=== PATIENT | male | born 1965 | race African-American/Black ===

== ENCOUNTER 2018-11-04 15:47 | Emergency (ER) | payer MEDICARE ==
[~2018-11-04] VITALS: Ht 170.2 cm; Wt 75.0 kg
[~2018-11-04 15:47] MED LIST: ABAC1TAB14 PO; ATAZ150C PO; RITO100C PO; TRAVADA PO
[2018-11-04 15:59] VITALS: BP 119/79
== END 2018-11-04 17:15 | disposition home or self-care (01) ==
LOC: ED 17:00
DX: S22.42XA Multiple fractures of ribs, left side, initial encounter for closed fracture (principal); Z21 Asymptomatic human immunodeficiency virus [HIV] infection status; X58.XXXA Exposure to other specified factors, initial encounter; Y93.89 Activity, other specified; Y92.009 Unspecified place in unspecified non-institutional (private) residence as the place of occurrence of the external cause; Y99.8 Other external cause status
CPT/HCPCS: 99283

== ENCOUNTER 2019-05-23 17:04 | Emergency (ER) | payer MEDICARE, MEDICAID ==
[~2019-05-23] VITALS: Ht 170.2 cm; Wt 72.0 kg
[2019-05-23 17:39] VITALS: BP 169/84
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
--- NOTE | 2019-05-23 18:52 | NUR ---
REPORT TO MICHAEL RENDON
--- NOTE | 2019-05-23 18:55 | NUR ---
Matthew bird in ED - 05/23/19 at 1901 by CARLI PT MOM GIVEN D/C INSTRUCTIONS, UNDERSTANDING STATED. PT CARRIED OUT WITH KI, STABLE ON D/C
== END 2019-05-23 19:07 | disposition home or self-care (01) ==
LOC: ED 19:01
DX: L01.01 Non-bullous impetigo (principal); B19.20 Unspecified viral hepatitis C without hepatic coma
CPT/HCPCS: 99283

== ENCOUNTER 2020-01-01 17:34 | Emergency (ER) | payer MEDICARE ==
[~2020-01-01] VITALS: Ht 170.2 cm; Wt 73.0 kg
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
--- NOTE | 2020-01-01 18:37 | NUR ---
REPORT FROM PATY RENDON.
--- NOTE | 2020-01-01 18:48 | NUR ---
REPORT TO ADELINE RENDON.
[2020-01-01 19:00] LABS: BASOPHILS # (AUTO) 0.03 x10^3/uL (0-0.1); BASOPHILS % (AUTO) 1 % (0-1); EOSINOPHILS # (AUTO) 0.05 x10^3/uL (0-0.4); EOSINOPHILS % (AUTO) 1 % (1-7); LYMPHOCYTES % (AUTO) 38 % (22-44); MD NO; MEAN CORPUSCULAR HEMOGLOBIN 32.6 pg (27.5-34.5); MEAN CORPUSCULAR HGB CONC 33.5 g/dL (33.2-36.2); MEAN CORPUSCULAR VOLUME 97.4 fL (81-97); MEAN PLATELET VOLUME 8.6 fL (7.4-10.4); MONOCYTES # (AUTO) 0.55 x10^3/uL (0.2-0.8); MONOCYTES % (AUTO) 12 % (2-9); NEUTROPHILS % (AUTO) 49 % (42-75); PLATELET COUNT 239 x10^3/uL (130-400); RED BLOOD COUNT 4.81 x10^6/uL (4.38-5.82); RED CELL DISTRIBUTION WIDTH 14.7 % (9.4-14.8)
[2020-01-01] MEDS ORDERED: ONDANSETRON ODT 4 MG PO ONE (19:00)
[2020-01-01] MEDS ORDERED: ONDANSETRON ODT 4 MG ONE (19:04)
[2020-01-01 19:05] LABS: ALBUMIN 3.7 g/dL (3.4-5.0); ANION GAP 8 mmol/L (5-15); CALCIUM 8.9 mg/dL (8.5-10.1); CHLORIDE 104 mmol/L (98-107); CREATININE 0.96 mg/dL (0.7-1.3)
[2020-01-01 20:58] VITALS: BP 159/92
== END 2020-01-01 21:00 | disposition home or self-care (01) ==
LOC: ED 19:55
DX: S00.412A Abrasion of left ear, initial encounter (principal); J02.8 Acute pharyngitis due to other specified organisms; B97.89 Other viral agents as the cause of diseases classified elsewhere; R94.31 Abnormal electrocardiogram [ECG] [EKG]; Z21 Asymptomatic human immunodeficiency virus [HIV] infection status; X58.XXXA Exposure to other specified factors, initial encounter; Y93.89 Activity, other specified; Y92.89 Other specified places as the place of occurrence of the external cause; Y99.8 Other external cause status
CPT/HCPCS: 36415; 71045; 80048; 82040; 85025; 87081; 87880; 93005; 99285; Q0162

== ENCOUNTER 2020-05-27 01:31 | Emergency (ER) | payer MEDICARE, MEDICAID ==
[~2020-05-27] VITALS: Ht 170.2 cm; Wt 66.0 kg
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
[2020-05-27] MEDS ORDERED: OXYcodone/APAP 5/325MG TABLET ONE (03:08)
--- NOTE | 2020-05-27 03:10 | NUR ---
PT C/O PAIN ON FACE. REPORTED TO PROVIDER FOR PAIN MEDICATION ORDER. PT MEDICATED PER JAN.
[2020-05-27] MEDS ORDERED: OXYcodone/APAP 5/325MG TABLET PO ONE (03:30)
--- NOTE | 2020-05-27 03:55 | NUR ---
PT RESTING IN NAD.
[2020-05-27 04:23] VITALS: BP 121/65
== END 2020-05-27 05:07 | disposition home or self-care (01) ==
LOC: ED 02:01
DX: S02.2XXA Fracture of nasal bones, initial encounter for closed fracture (principal); S02.31XA Fracture of orbital floor, right side, initial encounter for closed fracture; R51 Headache; Y04.8XXA Assault by other bodily force, initial encounter; Y93.89 Activity, other specified; Y92.410 Unspecified street and highway as the place of occurrence of the external cause; Y99.8 Other external cause status
CPT/HCPCS: 70450; 70486; 72125; 99285

== ENCOUNTER 2020-06-28 13:17 | Observation (INO) | payer MEDICARE, MEDICAID ==
[~2020-06-28] VITALS: Ht 170.2 cm; Wt 67.0 kg
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
--- NOTE | 2020-06-28 13:59 | NUR ---
REPORT FROM JUSTICE MULTANI. PT CARE RESPONSIBLITIES ASSUMED.
--- NOTE | 2020-06-28 14:07 | NUR ---
REPORT GIVEN TO JUSTICE YANCEY.
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
--- NOTE | 2020-06-28 17:01 | NUR ---
PT UPDATED ON PLAN OF CARE. VERBALIZES UNDERSTANDING, DENIES ANY FURTHER NEEDS OR CONCERNS AT THIS TIME. CALL LIGHT IN REACH.
--- NOTE | 2020-06-28 17:01 | NUR ---
[facility] [place] -
--- NOTE | 2020-06-28 19:17 | NUR ---
PT PROVIDED WITH WARM BLANKETS PER REQUEST. DENIES ANY OTHER NEEDS AT THIS TIME. CALL LIGHT IN REACH.
--- NOTE | 2020-06-28 19:51 | NUR ---
REPORT CALLED TO LARISSA HELTON RN. PT AWARE OF IMPENDING TRANSPORT. DENIES ANY NEEDS OR CONCERNS AT THIS TIME. CALL LIGHT IN REACH.
[2020-06-28 20:30] VITALS: BP 184/102
[2020-06-28] MEDS ORDERED: morphine SULFATE 10 MG/ML, 1ML IVPush PRN (23:00)
[2020-06-28] MEDS ORDERED: ONDANSETRON 2MG/ML, 2ML IVPush PRN (23:00)
[2020-06-28] MEDS ORDERED: hydrALAzine 20 MG/ML, 1ML IVPush PRN (23:00)
[2020-06-28] MEDS ORDERED: ACETAMINOPHEN 325 MG TABLET PO PRN (23:00)
[2020-06-28] MEDS ORDERED: LORazepam 1MG TABLET PO PRN (23:00)
[2020-06-28] MEDS ORDERED: CLON1TAB11 PO (23:24)
[2020-06-29] MEDS ORDERED: NICOTINE 21 MG/24 HR PATCH.TD24 TD SCH (01:00)
[2020-06-29 02:18] VITALS: BP 162/96
[2020-06-29 07:19] VITALS: BP 139/77
[2020-06-29] MEDS ORDERED: SENNA/DOCUSATE TABLET PO SCH (09:00)
[2020-06-29] MEDS ORDERED: TRIUMEQ PO SCH (09:00)
[2020-06-29 12:44] VITALS: BP 144/102
[2020-06-29] MEDS ORDERED: OXYC-302 PO ×2 (15:36→15:41)
== END 2020-06-29 17:00 | disposition home or self-care (01) ==
LOC: ED 15:14 → INTOOBSV 18:28 → 4NE 18:28
PROVIDERS: ADMIT Family Medicine; ATTEND Internal Medicine
DX: S02.642A Fracture of ramus of left mandible, initial encounter for closed fracture (principal); S02.641A Fracture of ramus of right mandible, initial encounter for closed fracture; F41.9 Anxiety disorder, unspecified; B20 Human immunodeficiency virus [HIV] disease; R20.0 Anesthesia of skin; F17.200 Nicotine dependence, unspecified, uncomplicated; Z79.899 Other long term (current) drug therapy; Y04.0XXA Assault by unarmed brawl or fight, initial encounter; Y93.89 Activity, other specified; Y92.89 Other specified places as the place of occurrence of the external cause
CPT/HCPCS: 70100; 99285; G0378

== ENCOUNTER 2020-07-22 00:27 | Emergency (ER) | payer MEDICARE, MEDICAID ==
[~2020-07-22] VITALS: Ht 170.2 cm; Wt 71.0 kg
[~2020-07-22 00:27] MED LIST changes: +AMOX1TAB64 PO; +CLIN300C8 PO; +CLON1TAB11 PO; +HYDR-826 PO; +METO25TA91 PO; +NAPR-856 PO; +OXYC-302 PO; +[UNRECOGNIZED DRUG - OTHER] PO
[2020-07-22 00:31] VITALS: BP 155/107
--- NOTE | 2020-07-22 00:40 | NUR ---
PT AMB TO ROOM FROM TRIAGE
--- NOTE | 2020-07-22 01:51 | NUR ---
LAB AT BEDSIDE FOR DRAW
[2020-07-22 02:08] LABS: BASOPHILS # (AUTO) 0.02 x10^3/uL (0-0.1); BASOPHILS % (AUTO) 0 % (0-1); EOSINOPHILS # (AUTO) 1.32 x10^3/uL (0-0.4); EOSINOPHILS % (AUTO) 24 % (1-7); LYMPHOCYTES # (AUTO) 2.09 x10^3/uL (1-3.4); LYMPHOCYTES % (AUTO) 37 % (22-44); MD NO; MEAN CORPUSCULAR HEMOGLOBIN 33.8 pg (27.5-34.5); MEAN CORPUSCULAR HGB CONC 32.9 g/dL (33.2-36.2); MEAN CORPUSCULAR VOLUME 102.9 fL (81-97); MEAN PLATELET VOLUME 7.6 fL (7.4-10.4); MONOCYTES # (AUTO) 0.43 x10^3/uL (0.2-0.8); MONOCYTES % (AUTO) 8 % (2-9); NEUTROPHILS # (AUTO) 1.75 x10^3/uL (1.8-6.8); NEUTROPHILS % (AUTO) 31 % (42-75); PLATELET COUNT 328 x10^3/uL (130-400); RED BLOOD COUNT 4.11 x10^6/uL (4.38-5.82); RED CELL DISTRIBUTION WIDTH 14.6 % (9.4-14.8)
[2020-07-22 02:21] LABS: ALANINE AMINOTRANSFERASE 25 U/L (12-78); ALBUMIN 2.9 g/dL (3.4-5.0); ANION GAP 6 mmol/L (5-15); CALCIUM 8.4 mg/dL (8.5-10.1); CHLORIDE 111 mmol/L (98-107); CREATININE 0.93 mg/dL (0.7-1.3)
[2020-07-22 02:23] LABS: ALKALINE PHOSPHATASE 60 U/L (45-117); BILIRUBIN,TOTAL 0.2 mg/dL (0.2-1.0); TOTAL PROTEIN 6.4 g/dL (6.4-8.2)
--- NOTE | 2020-07-22 02:54 | NUR ---
AT BEDSIDE FOR REASSEMENT
[2020-07-22] MEDS ORDERED: HYDROcodone/APAP 5/325 TABLET PO ONE (03:00)
[2020-07-22] MEDS ORDERED: DIPHENHYDRAMINE 25 MG CAPSULE PO ONE (03:00)
[2020-07-22] MEDS ORDERED: DEXAMETHASONE 4 MG TABLET PO ONE (03:00)
[2020-07-22] MEDS ORDERED: HYDROcodone/APAP 5/325 TABLET ONE (03:18)
[2020-07-22] MEDS ORDERED: DIPHENHYDRAMINE 25 MG CAPSULE ONE (03:19)
[2020-07-22] MEDS ORDERED: DEXAMETHASONE 4 MG TABLET ONE (03:19)
--- NOTE | 2020-07-22 03:48 | NUR ---
Patient/Caregiver given discharge instructions and they have confirmed that they understand the instructions. Patient ambulatory with steady gait.
== END 2020-07-22 03:49 | disposition home or self-care (01) ==
LOC: ED 02:52
DX: H05.229 Edema of unspecified orbit (principal); R68.84 Jaw pain; Z21 Asymptomatic human immunodeficiency virus [HIV] infection status; R51 Headache; F17.200 Nicotine dependence, unspecified, uncomplicated
CPT/HCPCS: 36415; 80053; 85025; 99284; Q0163

== ENCOUNTER 2020-09-10 11:55 | Inpatient (IN) | payer MEDICARE, MEDICAID ==
[~2020-09-10] VITALS: Ht 170.2 cm; Wt 70.3 kg
[2020-09-10 12:47] LABS: BASOPHILS % (AUTO) 1 % (0-1); EOSINOPHILS % (AUTO) 2 % (1-7); LYMPHOCYTES % (AUTO) 14 % (22-44); MEAN CORPUSCULAR HEMOGLOBIN 33.6 pg (27.5-34.5); MEAN CORPUSCULAR HGB CONC 32.9 g/dL (33.2-36.2); MEAN PLATELET VOLUME 8.9 fL (7.4-10.4); MONOCYTES % (AUTO) 9 % (2-9); NEUTROPHILS % (AUTO) 75 % (42-75); PLATELET COUNT 291 x10^3/uL (130-400); RED BLOOD COUNT 4.23 x10^6/uL (4.38-5.82); RED CELL DISTRIBUTION WIDTH 13.9 % (9.4-14.8)
[2020-09-10 12:56] LABS: ALBUMIN 3.2 g/dL (3.4-5.0); ANION GAP 3 mmol/L (5-15); CALCIUM 8.8 mg/dL (8.5-10.1); CHLORIDE 106 mmol/L (98-107); CREATININE 0.93 mg/dL (0.7-1.3)
[2020-09-10 13:28] LABS: MD SCAN
[2020-09-10] MEDS ORDERED: HYDROmorphone 1 MG/ML, 1ML INJ IVPush PRN (14:00)
[2020-09-10] MEDS ORDERED: ONDANSETRON 2MG/ML, 2ML IVPush ONE (14:00)
[2020-09-10] MEDS ORDERED: PHARMACOKINETIC CONSULTATION MC ONE ×2 (14:00→20:00)
[2020-09-10] MEDS ORDERED: VANCOMYCIN 1,800 MG in SODIUM CHLORIDE 0.9% 250 ML IV ONE ×2 (14:00→20:00)
[2020-09-10] MEDS ORDERED: SODIUM CHLORIDE FLUSH 10ML SYR IVF ONE (14:00)
[2020-09-10] MEDS ORDERED: VANCOMYCIN PER PHARMACY MC ONE (14:00)
[2020-09-10] MEDS ORDERED: ONDANSETRON 2MG/ML, 2ML ONE (14:29)
[2020-09-10] MEDS ORDERED: HYDROmorphone 1 MG/ML, 1ML INJ ONE (14:29)
[2020-09-10] MEDS ORDERED: DIPH,PERTUSS(ACELL),TET VAC/PF 0.5 ML IM-VACC ONE (15:30)
[2020-09-10] MEDS ORDERED: LIDOCAINE-MPF 1%, 5ML ONE (17:00)
[2020-09-10] MEDS ORDERED: LIDOCAINE 1%, 10ML INFIL ONE (17:00)
[2020-09-10] MEDS ORDERED: hydrOXyzine 50MG TABLET ONE (17:11)
[2020-09-10] MEDS ORDERED: BISACODYL 10 MG SUPP PR PRN (18:30)
[2020-09-10] MEDS ORDERED: DOCUSATE 100 MG CAPSULE PO PRN (18:30)
[2020-09-10] MEDS ORDERED: NAPROXEN 500 MG TABLET PO PRN (18:30)
[2020-09-10] MEDS ORDERED: ACETAMINOPHEN 325 MG TABLET PO PRN (18:30)
[2020-09-10] MEDS ORDERED: morphine SULFATE 10 MG/ML, 1ML IVPush PRN (18:30)
[2020-09-10] MEDS ORDERED: POLYETHYLENE GLYCOL 17 GM PACKET PO PRN (18:30)
[2020-09-10] MEDS ORDERED: OXYcodone/APAP 5/325MG TABLET PO PRN (18:30)
[2020-09-10] MEDS ORDERED: SODIUM CHLORIDE 0.9% 1,000 ML IV SCH (18:30)
[2020-09-10] MEDS ORDERED: VANCOMYCIN PER PHARMACY MC PRN (18:30)
[2020-09-10] MEDS ORDERED: ONDANSETRON 2MG/ML, 2ML IVPush PRN (18:30)
[2020-09-10] MEDS ORDERED: PHARMACOKINETIC MONITORING MC PRN (20:00)
[2020-09-10 22:00] VITALS: BP 156/99
[2020-09-11] MEDS ORDERED: VANCOMYCIN 1,400 MG in SODIUM CHLORIDE 0.9% 250 ML IV SCH (08:00)
[2020-09-11] MEDS ORDERED: METOPROLOL SUCCINATE 25 MG TAB.ER.24H PO SCH (09:00)
[2020-09-11] MEDS ORDERED: NICOTINE 21 MG/24 HR PATCH.TD24 TD SCH (09:00)
[2020-09-11] MEDS ORDERED: [UNRECOGNIZED DRUG - OTHER] HOMEMEDPO SCH (09:00)
== END 2020-09-10 23:00 | disposition left against medical advice (07) | DRG 558 ==
LOC: ED 15:51 → EDIP 17:37 → 3N 19:11
PROVIDERS: ADMIT Internal Medicine; ATTEND Internal Medicine
DX: M65.842 Other synovitis and tenosynovitis, left hand (principal); L03.114 Cellulitis of left upper limb; L03.012 Cellulitis of left finger; F17.200 Nicotine dependence, unspecified, uncomplicated; F41.9 Anxiety disorder, unspecified; S61.218A Laceration without foreign body of other finger without damage to nail, initial encounter; Z20.828 Contact with and (suspected) exposure to other viral communicable diseases; Z21 Asymptomatic human immunodeficiency virus [HIV] infection status; D72.829 Elevated white blood cell count, unspecified; Z72.89 Other problems related to lifestyle; Z88.0 Allergy status to penicillin
CPT/HCPCS: 36415; 71045; 80048; 82040; 83605; 83735; 84100; 85025; 87040; 87070; 87077; 87147; 87205; 87491; 87591; 87635; G0378; J1170; J2405; J3370; J7030; J7050; Q0177